=== PATIENT | female | born 1985 | race Caucasian/White ===

== ENCOUNTER 2016-09-29 23:04 | Emergency (ER) | payer MEDICAID ==
[~2016-09-29] VITALS: Ht 157.5 cm; Wt 87.1 kg
[2016-09-29 23:30] VITALS: BP_SYST 136
--- NOTE | 2016-09-29 23:30 | NUR ---
Patient to ER bed 3 to gown for evaluation. Side rails up. Report given to CLARITA Spencer.
--- NOTE | 2016-09-29 23:35 | NUR ---
Pt is A&O x4. Family at bedside. Pt states she fell while playing basketball and right ankle was twisted. Pt states 08/14 throbbing pain that radiates upward while standing. No acute distress or SOB noted. Addendum: 09/30/16 at 0036 by [email or web address] Pt denies any nausea, vomiting or diarrhea at this time.
--- NOTE | 2016-09-29 23:40 | NUR ---
ER at bedside examining patient.
--- NOTE | 2016-09-29 23:43 | NUR ---
XRAY at bedside.
[2016-09-30 01:16] VITALS: BP_SYST 130
--- NOTE | 2016-09-30 01:16 | NUR ---
Patient given written and verbal discharge instructions and verbalizes understanding. ER MD discussed with patient the results and treatment provided. Patient in stable condition. ID arm band removed. No Rx given. Patient educated on pain management and to follow up with PMD. Pain Scale 0/10. Opportunity for questions provided and answered.
== END 2016-09-30 01:16 | disposition home or self-care (01) ==
LOC: SED 23:04
DX: S93.491A Sprain of other ligament of right ankle, initial encounter (principal); W19.XXXA Unspecified fall, initial encounter; Y93.67 Activity, basketball; Y92.310 Basketball court as the place of occurrence of the external cause; Y99.8 Other external cause status
CPT/HCPCS: 73590-TC; 99284